=== PATIENT | female | born 1990 | race Two or more races ===

== ENCOUNTER 2017-12-08 14:20 | Emergency (ER) | payer MEDICAID ==
[2017-12-08] VITALS (21 sets, daily range): BP systolic 106–135; BP diastolic 65–89
[~2017-12-08] VITALS: Ht 162.6 cm; Wt 68.0 kg
[2017-12-08] MEDS ORDERED: Haloperidol Decanoate 50mg Inj IM ONE (15:00)
[2017-12-08] MEDS ORDERED: DiphenhydrAMINE 50mg/ml Inj IM ONE (15:00)
--- NOTE | 2017-12-08 16:09 | Emergency Room Report ---
History of Present Illness General Chief Complaint: Behavioral Complaint Source: Patient, EMS (Christianne Vernon) Present Illness HPI 27-year-old female presents to the emergency department brought by EMS for psychiatric reasons. Patient was placed on a hold by [employer]. Patient was at a psychiatric clinic when this occurred. History and ROS is limited due to patient mental status. (Christianne Vernon) Allergies: Coded Allergies: UNABLE TO ASSESS (Unverified , 12/08/17) Patient History Limited by: other - AMS/ Past Medical History: see triage record, psych hx Past Surgical History: unable to obtain Pertinent Family History: unable to obtain Last Menstrual Period: unknown Reviewed Nursing Documentation: PMH: Agreed; PSxH: Agreed (Christianne Vernon) Nursing Documentation-PMH Past Medical History: No History, Except For History Of Psychiatric Problem: Yes (Christianne Vernon) Review of Systems All Other Systems: limited - Pt. does not answer questions appropriately, repeats same phrases. (Christianne Vernon) Physical Exam Vital Signs Date Time Temp Pulse Resp B/P (MAP) Pulse Ox O2 Delivery O2 Flow Rate FiO2 12/08/17 14:16 98.0 125 18 103/65 100 Room Air 98.1 Sp02 EP Interpretation: reviewed, normal General Appearance: no apparent distress, alert, GCS 15, non-toxic Head: normocephalic, atraumatic Eyes: bilateral eye normal inspection, bilateral eye PERRL ENT: hearing grossly normal, normal voice Neck: full range of motion, no bony tend Respiratory: chest non-tender, lungs clear, normal breath sounds, no respiratory distress, no wheezing, speaking full sentences Cardiovascular #1: regular rate, rhythm, no edema, normal capillary refill - pt in leather restraints Gastrointestinal: normal bowel sounds, non tender, soft, non-distended, no guarding Rectal: deferred Genitourinary: normal inspection Musculoskeletal: back normal, gait/station normal, normal range of motion, non- tender Neurologic: alert, oriented x3, responsive, motor strength/tone normal, sensory intact, speech normal - able to articulate words, however repetitive words, no direction of thoughts. , grossly normal Psychiatric: other - Pt. agitated, able to articulate words, however repetitive words, no direction of thoughts. not cooperative, frequent tics are noted. no evidence of muscle rigidity. Skin: normal color, no rash, warm/dry, well hydrated (Christianne Vernon) Medical Decision Making PA Attestation Dr. Taveras is my supervising Physician whom patient management has been discussed with. Restraint Attestation I, LEYLA Brandon, have personally evaluated this patient. Laboratory tests have been reviewed and addressed accordingly. The patient is deemed to present a danger to themselves and/or others. This is based on the exam, history ( provided by patient, EMS/[employer] and/or family) and observed or reported behavior. Attempts for non-invasive measures have been considered and/or attempted, however, have been futile. It is in the best interest of the nursing staff, the patient, and others involved in this patient's care that behavioral restraints be applied. Patient evaluation reveals the following: Very agitated, not cooperative, evidence of acute psychiatric episode- poses danger to self as well as others she is also a flight risk she is currently on a 5150 hold that was placed by PD Behavioral: Schizophrenia, Bipolar Disorder Reaction to Intervention: Improved (Christianne Vernon) Diagnostic Impression: Primary Impression: Behavioral change Additional Impressions: Methamphetamine abuse Psychosis Qualified Codes: F23 - Brief psychotic disorder ER Course 27-year-old female presents to the emergency department brought by EMS for psychiatric reasons. Patient was placed on a hold by [employer]. Patient was at a psychiatric clinic when this occurred. History and ROS is limited due to patient mental status. Pt is hyperactive, and has a very anxious and restless affect. Ddx considered but are not limited to OD, SI/HI, psychosis, UTI, intoxication Vital signs: are WNL, pt. is afebrile H&PE are most consistent with behavioral/mental health issue---Pt. does not answer questions appropriately, repeats same phrases. -I reviewed this patient's external medication history and I see that last year she was prescribed Haldol and several occasions, Respinol 0.2 mg by mouth in addition to Prozac. I do not see any recent medication fills. ORDERS: - behavioral restraints ordered upon arrival pt. is agitated, trying to get out of PD hand cuffs. due to poor cooperation, and acute psychotic features as well as being on a hold pt. placed into restraints to insure staff safety as well as patient safety. Pt. is NVI both before and after application of leather restraints to the bilateral wrists and ankles. -CBC, CMP: Unremarkable -UA: negative for infection see results attached. -Urine Hcg: Negative -UDS: Positive for Amphetamines -Salicylates and Acetaminophen - no acute intoxication. ED INTERVENTIONS: - 50 Haldol Dec -2mg Risperdal -50 Im Benadryl Upon reevaluation older brother is at bedside who states that patient has had a history of paranoid schizophrenia, depression and was also diagnosed with bipolar since a young age. Mother states the patient is noncompliant on medications. Brother states that patient lives by herself and normally is able to function on her own however she will have intermittent episodes where she is agitated and does not want to talk with anyone. Other states that episode today as not consistent with her normal character. He reports that patient willingly went with father to a psychiatric clinic because they were concerned for her and after she was being evaluated in asked multiple questions she became significantly agitated to the point that provider at the clinic called 911 and the patient was placed on hold due to danger to self and/or others. Brother also reports that patient has had history of amphetamine use in the past. He does not know whether or not she is still taking her previously prescribed medications. DISPOSITION: Patient requires continued observation while she rests until she is able to be reexamined to determine if she is fit for outpatient treatment, or whether she should be transferred to up his facility. Dr. Younger did see this patient upon arrival during acute agitation, and wants to reassess her after medications.. Pt. signed out to Dr. Baig Labs Test 12/08/17 14:00 12/08/17 16:05 Urine Color Yellow Urine Appearance Slightly cloudy Urine pH 5 (4.5-8.0) Urine Specific Remus 1.025 (1.005-1.035) Urine Protein 2+ (NEGATIVE) Urine Glucose (UA) Negative (NEGATIVE) Urine Ketones 3+ (NEGATIVE) Urine Occult Blood Negative (NEGATIVE) Urine Nitrite Negative (NEGATIVE) Urine Bilirubin 1+ (NEGATIVE) Urine Ictotest Negative Urine Urobilinogen 4 MG/DL (0.0-1.0) Urine Leukocyte Esterase 1+ (NEGATIVE) Urine RBC 0-2 /HPF (0 - 2) Urine WBC 2-4 /HPF (0 - 2) Urine Squamous Epithelial Cells Few /LPF (NONE/OCC) Urine Amorphous Sediment Few /LPF (NONE) Urine Bacteria Few /HPF (NONE) Urine HCG, Qualitative Negative (NEGATIVE) Urine Opiates Screen Negative (NEGATIVE) Urine Barbiturates Screen Negative (NEGATIVE) Phencyclidine (PCP) Screen Negative (NEGATIVE) Urine Amphetamines Screen Positive (NEGATIVE) Urine Benzodiazepines Screen Negative (NEGATIVE) Urine Cocaine Screen Negative (NEGATIVE) Urine Marijuana (THC) Screen Negative (NEGATIVE) White Blood Count 8.7 K/UL (4.8-10.8) Red Blood Count 4.09 M/UL (4.20-5.40) Hemoglobin 12.4 G/DL (12.0-16.0) Hematocrit 36.6 % (37.0-47.0) Mean Corpuscular Volume 89 FL (80-99) Mean Corpuscular Hemoglobin 30.4 PG (27.0-31.0) Mean Corpuscular Hemoglobin Concent 34.0 G/DL (32.0-36.0) Red Cell Distribution Width 14.2 % (11.6-14.8) Platelet Count 232 K/UL (150-450) Mean Platelet Volume 8.5 FL (6.5-10.1) Neutrophils (%) (Auto) 73.7 % (45.0-75.0) Lymphocytes (%) (Auto) 16.6 % (20.0-45.0) Monocytes (%) (Auto) 8.7 % (1.0-10.0) Eosinophils (%) (Auto) 0.2 % (0.0-3.0) Basophils (%) (Auto) 0.8 % (0.0-2.0) Sodium Level 141 MMOL/L (136-145) Potassium Level 3.5 MMOL/L (3.5-5.1) Chloride Level 103 MMOL/L (98-107) Carbon Dioxide Level 30 MMOL/L (21-32) Anion Gap 8 mmol/L (5-15) Blood Urea Nitrogen 19 mg/dL (7-18) Creatinine 0.8 MG/DL (0.55-1.30) Estimat Glomerular Filtration Rate > 60 mL/min (>60) Glucose Level 92 MG/DL (74-106) Calcium Level 9.1 MG/DL (8.5-10.1) Total Bilirubin 0.7 MG/DL (0.2-1.0) Aspartate Amino Transf (AST/SGOT) 12 U/L (15-37) Alanine Aminotransferase (ALT/SGPT) 13 U/L (12-78) Alkaline Phosphatase 81 U/L (46-116) Total Protein 7.7 G/DL (6.4-8.2) Albumin 4.1 G/DL (3.4-5.0) Globulin 3.6 g/dL Albumin/Globulin Ratio 1.1 (1.0-2.7) Salicylates Level 1.1 ug/mL (2.8-20) Acetaminophen Level < 2 MCG/ML (10-30) Serum Alcohol < 3 mg/dL (Christianne Vernon) ER Course Patient was signed out to me. She came in very agitated and psychotic secondary to drug abuse. She was placed on a hold by police. Patient slept through the night without any difficulty. Psychiatric placement is still pending. Patient will be reevaluated in the morning. (COURTNEY BAIG M.D.) ER Course Patient was seen by our psychiatrist doctor Carisa. Patient's has no complaints at this time. Patient is not suicidal or homicidal and no evidence of auditory or visual hallucinations. Patient does not meet criteria for 5150 according to our psychiatrist and I would agree after assessing the patient. Patient did abuse methamphetamines and I believe this could have led to her abnormal behavior. Patient will be discharged in the care of her family. We will locate the family and discharge patient back to the family. (ANGELIQUE WILCOX M.D.) Last Vital Signs Date Time Temp Pulse Resp B/P (MAP) Pulse Ox O2 Delivery O2 Flow Rate FiO2 12/08/17 14:45 122 22 116/71 95 Room Air 12/08/17 14:16 98.0 98.1 (Christianne Vernon) Status: improved (ANGELIQUE WILCOX M.D.) Disposition: HOME, SELF-CARE Condition: Stable Referrals: NOT CHOSEN IPA/,REFERRING (PCP) Christianne Vernon Dec 08, 2017 16:09 COURTNEY BAIG M.D. Dec 09, 2017 03:27 ANGELIQUE WILCOX M.D. Dec 09, 2017 14:43
[2017-12-08 16:19] LABS: APPEARANCE,URINE SLIGHTLY CLOUDY; BILIRUBIN, URINE 1+ (NEGATIVE); GLUCOSE, URINE (UA) NEGATIVE (NEGATIVE); KETONES,URINE 3+ (NEGATIVE); LEUKOCYTE ESTERASE ,URINE 1+ (NEGATIVE); NITRITE,URINE NEGATIVE (NEGATIVE); PH,URINE 5 (4.5-8.0); PROTEIN,URINE 2+ (NEGATIVE); UROBILINOGEN,URINE 4 MG/DL (0.0-1.0)
[2017-12-08 16:22] LABS: COLOR,URINE YELLOW
[2017-12-08 16:26] LABS: BASOPHILS % (AUTO) 0.8 % (0.0-2.0); EOSINOPHILS % (AUTO) 0.2 % (0.0-3.0); HEMATOCRIT 36.6 % (37.0-47.0); HEMOGLOBIN 12.4 G/DL (12.0-16.0); LYMPHOCYTES % (AUTO) 16.6 % (20.0-45.0); MEAN CORPUSCULAR VOLUME 89 FL (80-99); MONOCYTES % (AUTO) 8.7 % (1.0-10.0); NEUTROPHILS % (AUTO) 73.7 % (45.0-75.0); PLATELET COUNT 232 K/UL (150-450); RED BLOOD COUNT 4.09 M/UL (4.20-5.40); RED CELL DISTRIBUTION WIDTH 14.2 % (11.6-14.8); WHITE BLOOD COUNT 8.7 K/UL (4.8-10.8)
[2017-12-08 16:27] LABS: ANION GAP 8 mmol/L (5-15); BLOOD UREA NITROGEN 19 mg/dL (7-18); CALCIUM 9.1 MG/DL (8.5-10.1); CARBON DIOXIDE 30 MMOL/L (21-32); CHLORIDE 103 MMOL/L (98-107); CREATININE 0.8 MG/DL (0.55-1.30); POTASSIUM 3.5 MMOL/L (3.5-5.1); SODIUM 141 MMOL/L (136-145)
[2017-12-08 16:31] LABS: ALANINE AMINOTRANSFERASE 13 U/L (12-78); ALBUMIN 4.1 G/DL (3.4-5.0); ALBUMIN/GLOBULIN RATIO 1.1 (1.0-2.7); ALKALINE PHOSPHATASE 81 U/L (46-116); ASPARTATE AMINO TRANSFERASE 12 U/L (15-37); BILIRUBIN,TOTAL 0.7 MG/DL (0.2-1.0)
[2017-12-09] VITALS (8 sets, daily range): BP systolic 98–120; BP diastolic 48–79
--- NOTE | 2017-12-10 01:13 | Consultation ---
History of Present Illness General Date patient seen: Dec 09, 2017 Chief Complaint: Behavioral Complaint Present Illness HPI 27 yo female with hx of meth use. who was admitted on 5150. the pt stabilized on antipsychotics. she is calm and is not at imminent dts/dto the pt will be discharged to family dc 5150 as the pt is not suicidal nor homicidal Allergies: Coded Allergies: UNABLE TO ASSESS (Unverified , 12/08/17) Patient History Healthcare decision maker Resuscitation status Advanced Directive on File Physical Exam Last 24 Hour Vital Signs Date Time Temp Pulse Resp B/P (MAP) Pulse Ox O2 Delivery O2 Flow Rate FiO2 12/09/17 19:00 97.5 69 15 120/74 99 Room Air 97.5 12/09/17 16:00 97.5 62 15 116/61 98 Room Air 97.5 12/09/17 12:00 97.2 66 15 114/59 98 Room Air 97.2 12/09/17 08:00 97.8 56 15 108/56 97 Room Air 97.8 12/09/17 06:16 98.1 56 15 98/76 97 Room Air 98.1 12/09/17 03:30 98.1 71 15 111/71 97 Room Air 98.1 12/09/17 01:30 98.1 77 16 119/79 98 Room Air 98.1 Height (Feet): 5 Height (Inches): 4.00 Weight (Pounds): 150 Deena Younger M.D. Dec 10, 2017 01:13
== END 2017-12-09 21:40 | disposition home or self-care (01) ==
LOC: EDBD 14:20 → EMR 14:45
DX: F91.9 Conduct disorder, unspecified (principal); F15.10 Other stimulant abuse, uncomplicated; F29 Unspecified psychosis not due to a substance or known physiological condition
CPT/HCPCS: 36415; 80053; 80307; 80329; 81003; 81025; 85025; 96372; 99284; J1200; J1631